=== PATIENT | male | born 1990 | race Native Hawaiian/Other Pacific Islander ===

== ENCOUNTER 2016-12-17 11:07 | Emergency (ER) | payer OTHER ==
[2016-12-17 11:41] VITALS: BP 134/92; PULSE 88; RESP 14; TEMP 97.8; O2SAT 100
[2016-12-17] MEDS ORDERED: Amoxicillin-Clav 875-125 mg Tab PO STA (11:54)
--- NOTE | 2016-12-17 11:57 | C.PDOC ---
History Of Present Illness 26 yr old male presents to the ER for evaluation of lower lip swelling since morning. Patient states there was a small pimple under his lip which he admits to squeezing yesterday. Patient denies fever, chills, headache, dizziness, drooling, toothache, trismus, sore throat, neck pain or any other active complaints. Ambulate to Ed for evaluation, not in any apparent distress. Time Seen by Provider: 12/17/16 11:37 Chief Complaint (Nursing): Abnormal Skin Integrity History Per: Patient History/Exam Limitations: no limitations Onset/Duration Of Symptoms: Days (1) Past Medical History Reviewed: Historical Data, Nursing Documentation, Vital Signs Vital Signs: Last Vital Signs Temp 97.8 F 12/17/16 11:30 Pulse 88 12/17/16 11:30 Resp 14 12/17/16 11:30 BP 134/92 H 12/17/16 11:30 Pulse Ox 100 12/17/16 12:33 Family History: States: No Known Family Hx - Social History Hx Alcohol Use: Yes Hx Substance Use: No - Immunization History Hx Tetanus Toxoid Vaccination: No Hx Influenza Vaccination: No Hx Pneumococcal Vaccination: No Review Of Systems Except As Marked, All Systems Reviewed And Found Negative. Constitutional: Negative for: Fever ENT: Positive for: Other ((+) Lower lip swelling ). Negative for: Mouth Swelling, Throat Pain Musculoskeletal: Negative for: Neck Pain Skin: Negative for: Rash Physical Exam - Physical Exam Appears: Well, Non-toxic, No Acute Distress Skin: Normal Color, Warm Head: Normacephalic Eye(s): bilateral: PERRL Ear(s): Bilateral: Normal Nose: No Flaring, No Deformity, No Tenderness Oral Mucosa: Moist, No Drooling Tongue: Normal Appearing Lips: Swelling (lower lip [id number] side with small tiny pustula in middle of lip just below vermilion border. No flactulance.) Throat: No Erythema, No Exudate, No Drooling Neck: Supple, Other ((-) meningeal sign) Lymphatic: No Adenopathy (cervical) Extremity: No Pedal Edema Neurological/Psych: Oriented x3, Normal Speech ED Course And Treatment O2 Sat by Pulse Oximetry: 100 (RA) Pulse Ox Interpretation: Normal Progress Note: On re-eavl, pt is afebrile, hemodynamicaly tsable. Non-toxic. Tolerate Po well in ED. no drooling or trismus. PulsEOx 100% RA. ENT: exam c/ w lower lip small furuncle with mild localized lower lip edema. uvula midline, no edmea. necl: Supple, no lymphodenopathy. Pt advised. ref. to f/u with ENT in 2-3 days for re-eavl. return to Ed if any worsening or new changes. Medical Decision Making Medical Decision Making: PLAN: * Augmentin PO Disposition Counseled Patient/Family Regarding: Diagnosis, Need For Followup, Rx Given - Disposition Referrals: Walter Davey MD [Staff Provider] - Disposition: HOME/ ROUTINE Disposition Time: 11:54 Condition: STABLE Additional Instructions: Warm salty water compresses to area 2-3 times daily for 3 days take medication as prescribed Follow up with ENT In 1-2 days for re-evaluation. Return to ED at any time if any worsening or new changes. Prescriptions: Amoxicillin/Clavulanate [Augmentin 875 MG-125 MG] 1 tab PO BID #14 tab Instructions: Furunculosis and Carbunculosis (ED) - Clinical Impression Clinical Impression: Furuncle - PA / IT CONSULTANT / Resident Statement MD/DO has reviewed & agrees with the documentation as recorded. - Scribe Statement The provider has reviewed the documentation as recorded by the Scribe Geni Real All medical record entries made by the Scribe were at my direction and personally dictated by me. I have reviewed the chart and agree that the record accurately reflects my personal performance of the history, physical exam, medical decision making, and the department course for this patient. I have also personally directed, reviewed, and agree with the discharge instructions and disposition.
[2016-12-17] MEDS ORDERED: Amoxicillin-Clav 875-125 mg Tab PO ONE (12:20)
== END 2016-12-17 12:14 | disposition home or self-care (01) ==
LOC: C.ER 11:07
DX: L02.828 Furuncle of other sites (principal)